=== PATIENT | female | born 1935 | race Caucasian/White ===

== ENCOUNTER 2019-05-14 16:45 | Inpatient (IN) | payer MEDICARE, OTHER ==
[~2019-05-14] VITALS: Ht 157.5 cm; Wt 50.3 kg
[2019-05-14 16:52] VITALS: Ht 157.5 cm; Wt 50.3 kg
--- NOTE | 2019-05-14 17:00 | NUR ---
PT BROUGHT IN BY [facility] FOR SYNCOPAL EPISODE TODAY. PER EMT'S PT WAS AMBULATING AT FACILITY WHEN SHE HAD SYNCOPAL EPISODE. PER STAFF PT. DID NOT HAVE A FALL DURING SYNCOPAL EPISODE AND PLACED BACK IN BED. PT NOTED TO HAVE R CHEEK ECCHYMOSIS, R ADVENT ABRASON AND ECCHYMOSIS TO L JAW. PER EMS CREW THEY WERE TOLD THESE INJURIES WERE DUE TO PREVIOS FALL. PT IS APHASIC AND DOES NOT ANSWER QUSTIONS. PT PLACED ON CM. BREATHING EVEN UNLABORED. NO DISTRESS.
[2019-05-14 17:38] LABS: PLATELET COUNT 390 x10^3mcL (130-400)
--- NOTE | 2019-05-14 17:40 | NUR ---
PT STRAIGHT CATHED TO OBTAIN URINE SAMPLE. PT TOLERATED PROCEDURE WELL.
[2019-05-14 17:41] LABS: BASOPHIL % 0 % (0-2); RED CELL DISTRIBUTION WIDTH 15.1 % (11.5-14.5)
[2019-05-14 17:48] LABS: CARBON DIOXIDE 26.9 mmol/L (21-32); CHLORIDE SERUM 106 mmol/L (98-107); CREATININE SERUM 1.4 mg/dL (0.6-1.0); GLUCOSE SERUM 132 mg/dL (74-106); POTASSIUM SERUM 5.4 mmol/L (3.5-5.1); SODIUM SERUM 140 mmol/L (136-145)
[2019-05-14 17:52] LABS: ALKALINE PHOSPHATASE 115 U/L (46-116); ALT/SGPT 20 U/L (14-59); AST/SGOT 20 U/L (15-37); BILIRUBIN TOTAL 0.2 mg/dL (0.20-1.00); TOTAL PROTEIN, SERUM 7.3 g/dL (6.4-8.2)
--- NOTE | 2019-05-14 18:17 | NUR ---
PT OFF FLOOR TAKEN FOR CT SCAN VIA [facility].
--- NOTE | 2019-05-14 19:08 | NUR ---
PT REPORT RECEIVED FROM KD MANLEY TO ASSUME PT CARE, PT LAYING IN A POSITION OF COMFORT IN VIEW OF NURSE'S STATION. PT REMAINS ON FULL CM.
--- NOTE | 2019-05-14 19:10 | NUR ---
REPORT GIVEN TO SINDHU ELIZALDE TO ASSUME CARE OF PT.
--- NOTE | 2019-05-14 20:16 | NUR ---
PT RESTING IN A POSITION OF COMFORT WITH EYES CLOSED, RESP EVEN AND UNLABORED, NO ACUTE DISTRESS NOTED.
--- NOTE | 2019-05-14 21:04 | NUR ---
PT RESTING IN A POSITION OF COMFORT WITH EYES CLOSED, CHEST RISE AND FALL NOTED.
[2019-05-14] MEDS ORDERED: ARICEPT10 MG PO (21:23)
[2019-05-14] MEDS ORDERED: BENAZEPRIL HYDR40 M1 PO (21:23)
[2019-05-14] MEDS ORDERED: COLACE100 MG PO (21:24)
[2019-05-14] MEDS ORDERED: CALCIUM + D SO1 EACH PO (21:24)
[2019-05-14] MEDS ORDERED: FERROUS SULFAT325 M2 PO (21:25)
[2019-05-14] MEDS ORDERED: GABAPENTIN100 M2 PO (21:25)
[2019-05-14] MEDS ORDERED: SYNTHROID0.15 MG PO (21:25)
--- NOTE | 2019-05-14 21:36 | NUR ---
PT REPORT CALLED TO DAI MANLEY TO ASSUME PT CARE.
--- NOTE | 2019-05-14 21:39 | NUR ---
PT TRANSFERRED TO [address] [facility] BY EMELY MANLEY AND JALEN EMT. PT ON FULL CM FOR TRANSPORT, PT AT BASELINE, NON-VERBAL, RESPONSIVE TO PAIN ONLY, HOWEVER, RESP EVEN AND UNLABORED, NO ACUTE DISTRESS NOTED. PT ACCEPTED BY DAI MANLEY TO ASSUME PT CARE, PT TRANSFERRED FROM [facility] TO BED WITHOUT INCIDENT.
--- NOTE | 2019-05-14 22:00 | NUR ---
RECIEVED PT FROM ED. NO DISTRESS NOTED. NONVERBAL. RESPONDS TO VERBAL STIMULI. LUNGS CLEAR, ON 2L NC. NO SIGN OF RESP DISTRESS. EQUAL CHEST RISE AND FALL. TELE #8, NSR. NO SIGN OF DISTRESS NOTED. PULSES ARE PRESENT. NO EDEMA NOTED. BOWEL SOUNDS PRESENT x4. WATERY BLACK STOOL NOTED. MD MATA MADE AWARE. LUE CONTRACTURE NOTED. SKIN TEAR NOTED ON RLE WITH A DARK PUPLISH DISCOLORATION NOTED NEXT TO THE SKIN TEAR. CLEANED WITH NS, PICTURE TAKEN, NO DRAINAGE NOTED AND COVERED WITH A 4X4 DRESSING. 2 CIRCULAR, CLOSED, DRY SCABS NOTED ON L ELBOW. ERYTHEMIC WITH YELLOWISH SKIN NOTED ON L JAW. ERYTHEMIC SCAB NOTED ON R UPPER BROW. PICTURES TAKEN. NOTED HARD LUMP NOTED ON L BREAST. IV ON RH, INTACT AND PATENT. BED IS AT LOWEST SETTING. CALL LIGHT WITHIN REACH. BED ALARM IS ON. WILL CONTINUE TO MONITOR.
[2019-05-14 23:03] LABS: T3 TOTAL 0.71 ng/mL
[2019-05-14 23:11] LABS: FREE T4 1.54 ng/dL (0.76-1.46); FREE THYROXINE INDEX 3.6 ug/dL (1.4-4.5); T4(THYROXINE) 8.8 ug/dL (4.7-13.3)
--- NOTE | 2019-05-14 23:16 | NUR ---
SPOKE BRITTNEY MATA ABOUT PT HAVING A DNR PAPER IN HER CHART AND SHE IS ON THE SYSTEM A FULL CODE. ALSO REQUESTED AN ULTRASOUND FOR THE LUMP NOTED ON PT LEFT BREAST. MD TO INPUT ORDERS. WILL CONTINUE TO MONTIOR PT.
[2019-05-14 23:27] VITALS: BP 114/55
--- NOTE | 2019-05-15 01:01 | NUR ---
PT IS RESTING IN BED WITH BOTH EYE CLOSED. BREATHING EVEN AND UNLABORED. NO SIGN OF DISTRESS NOTED. IV INTACT AND PATENT. BED IS AT LOWEST SETTING. CALL LIGHT WITHIN REACH. WILL CONTINUE TO MONTIOR.
[2019-05-15 05:29] VITALS: BP 133/49
[2019-05-15 06:32] LABS: PLATELET COUNT 360 x10^3mcL (130-400)
[2019-05-15 06:38] LABS: CALCIUM 8.1 mg/dL (8.5-10.1); CARBON DIOXIDE 27.8 mmol/L (21-32); CHLORIDE SERUM 110 mmol/L (98-107); GLUCOSE SERUM 99 mg/dL (74-106); MAGNESIUM 1.7 mg/dL (1.8-2.4); PHOSPHOROUS 3.3 mg/dL (2.5-4.9); POTASSIUM SERUM 4.8 mmol/L (3.5-5.1); SODIUM SERUM 143 mmol/L (136-145)
--- NOTE | 2019-05-15 06:56 | NUR ---
PT IS RESTING IN BED. ULTRASOUND IS AT BEDSIDE. PT WAS UNABLE TO SWALLOW AM MEDICATION AND UNABLE TO FOLLOW COMMAND. MD MATA WAS PAGED. PT IS KEPT NPO AT THIS TIME UNTIL A SWALLOW EVAL IS COMPLETED. WILL ENDORSE TO AM NURSE.
--- NOTE | 2019-05-15 07:00 | NUR ---
ALOC, NONVERBAL, DOES BABBLE. RESPONDS TO TACTILE STIMULUS, NODS AND SMILES AND WITHDRAWS TO PAIN. LUNG SOUNDS DIMINISHED BILATERALLY, ON 2L NC O2 SAT 100%. TELE #8 NSR. PERIPHERAL PULSES PALPABLE, NO SIGNS OF EDEMA. NORMOACTIVE BOWEL SOUNDS X4. RLE ANTERIOR SCHIN AREA DRESSING CDI. SCABS ON LEFT ELBOW, OPEN TO AIR AND NO SIGNS OF INFECTION. INCONTINENT OF BLADDER. RIGHT HAND IV SITE CDI AND NO SIGNS OF INFECTION, PATENT. LEFT BREAST MASS MISHAPEN AND HARD TO PALPATION. ULTRASOUND DONE ON LEFT BREAST AND TO RIGHT BREAST FOR COMPARISON.
[2019-05-15 07:33] LABS: BASOPHIL % 0 % (0-2)
[2019-05-15 08:35] VITALS: BP 126/68
[2019-05-15 09:10] VITALS: BP 133/49
[2019-05-15 10:20] LABS: microscopic required? YES; urine erythrocyte NEGATIVE (NEGATIVE)
[2019-05-15 10:26] LABS: AMPHETAMINE QUAL UR NONE DETECTED (See below)
--- NOTE | 2019-05-15 11:47 | NUR ---
DR TURNER AWARE THAT PATIENT'S UA HAS NITRITES AND 2+ LEUKOCYTES. I ALSO TOLD HER SHE SWALLOWS HER PILLS CRUSHED IN PUDDING WITHOUT DIFFICULTY, THAT SHE HAS NO TEETH. SHE SAID HE IS ORDERING A SWALLOW EVAL. SHE IS ALSO AWARE THAT HER WBC'S ARE 14.0.
[2019-05-15 12:39] VITALS: BP 104/59
--- NOTE | 2019-05-15 12:53 | NUR ---
PT WAS SEEN FOR DYSPHAGIA.PT WAS ABLE TO SAFELY SWALLOW PUREE DIET WITH NECTAR THICK LIQUID. PT HAD COUGH FOR THIN LIQUID. RECOMMENDATION PUREE DIET WITH NECTAR THICK LIQUID SMALL BITES AND SIPS ONLY 1:1 SUPERVISION.
--- NOTE | 2019-05-15 13:00 | NUR ---
SPOKE TO DR. MURPHY ABOUT PATIENT'S SWALLOW EVAL, AND RECOMMENDATION FOR PUREE NECTAR THICK LIQUID DIET. DR. MURPHY CONFIRMED TO ORDER PUREE NECTAR THICK LIQUID DIET.
--- NOTE | 2019-05-15 15:35 | NUR ---
DISCUSSED WITH DR. MURPHY PATIENT'S FLU VACCINE STATUS. SHE WANTS US TO ORDER A FLU VACCINE. DR. MURPHY ALSO WANTS TO DISCUSS WITH FAMILY PERTAINING TO BEING POSSIBLY PUT ON HOSPICE. PATIENT'S DAUGHTER WILL COME THIS EVENING TO TALK TO THE RESIDENT.
[2019-05-15 17:28] VITALS: BP 104/52
--- NOTE | 2019-05-15 18:41 | NUR ---
ALOC. TELE #8, NSR. FAMILY WAS PRESENT. DOCTOR JEFFREY TALKED WITH FAMILY. IV SITE RIGHT HAND CDI. NO SIGNS OF PAIN. NO SOB. ATE 50% OF PUREE DINNER, FEEDER.
--- NOTE | 2019-05-15 19:22 | NUR ---
NURSING CO-SIGN THE DOCUMENTATION ENTERED BY THE IP HAS BEEN REVIEWED. REVIEWED/CO-SIGNED BY: Alisa Rosales DOCUMENTATION DONE BY: MELISSA CANDELARIA RN.
--- NOTE | 2019-05-15 19:30 | NUR ---
PT IS RESTING IN BED. NON VERBAL. UNABLE TO FOLLOW COMMANDS. ON TELE #8, NSR. NO SIGN OF PAIN OR DISTRESS NOTED. LUNGS CLEAR IN ALL FEILDS. ON RA, DENIES ANY SOB. EQUAL CHEST RISE AND FALL. LUMP ON L BREAST IS FIRM. BOWEL SOUNDS PRESENT X4. FLAT AND SOFT. INCONTINENT WITH URINE AND BM. LUE CONTRACTED. DRESSING ON RLE IS CLEAN AND INTACT. L ELBOW SCABS INTACT. NO PAIN NOTED. IV ON RH INTACT AND PATENT. NO SIGN OF INFILTRATION OR IRRITATION. BED IS AT LOWEST SETTING. SANDY LIGHT WITHIN REACH. BED ALARM IS ON. WILL CONTINUE TO MONITOR.
[2019-05-15 21:30] VITALS: BP 98/42
--- NOTE | 2019-05-16 01:19 | NUR ---
PT IS RESTING IN BED WITH NO SIGN OF DISTRESS NOTED. BREATHING EVEN AND UNALBORED. IV IS INTACT. BED IS AT LOWEST SETTING. CALL LIGHT WITHIN REACH. WILL CONTINUE TO MONTIOR.
[2019-05-16 05:18] VITALS: BP 110/50
--- NOTE | 2019-05-16 07:00 | NUR ---
PT IS RESTING IN BED WITH BOTH EYES CLOSED. BREATHING EVEN AND UNLABORED. NO SIGN OF DISTRESS NOTED. NO ACUTE EVENT OCCURED DURING SHIFT. BED IS AT LOWEST SETTING. CALL LIGHT WITHIN REACH. WILL ENDORSE TO AM NURSE.
--- NOTE | 2019-05-16 07:30 | NUR ---
RECEIVED PATIENT IN BED. NOT VERBALIZING AT THIS TIME. TELE 8 NSR. RESP EVEN AND UNLABORED, ON O2 AT 2L VIA N/C. IVF INFUSING TO RIGHT HAND, SITE PATENT. LEFT BREAST MASS NOTED. LUE CONTRACTURE NOTED. SKIN TEAR WITH ISLAND DRESSING NOTED ON RLE C/D I. 2 SCABS ON LEFT ELBOW AND BRUISE ON LEFT JAW, RT EYEBROW RED SCAB ALSO NOTED. PATIENT IS INCONT. NO S/S OF ANY PAIN AT THIS TIME.
[2019-05-16 07:50] LABS: BASOPHIL % 0.1 % (0-2); PLATELET COUNT 330 x10^3mcL (130-400)
[2019-05-16 07:59] LABS: CALCIUM 8.3 mg/dL (8.5-10.1); CHLORIDE SERUM 109 mmol/L (98-107); CREATININE SERUM 1.1 mg/dL (0.6-1.0); GLUCOSE SERUM 87 mg/dL (74-106); MAGNESIUM 1.5 mg/dL (1.8-2.4); PHOSPHOROUS 2.8 mg/dL (2.5-4.9); POTASSIUM SERUM 4.4 mmol/L (3.5-5.1); SODIUM SERUM 144 mmol/L (136-145)
[2019-05-16 08:04] LABS: RED CELL DISTRIBUTION WIDTH 14.8 % (11.5-14.5)
[2019-05-16 08:26] VITALS: BP 140/60
[2019-05-16 11:42] VITALS: BP 136/61
--- NOTE | 2019-05-16 12:36 | NUR ---
PATIENT REMAINS IN BED. REPOSITIONED Q 2 HRS. REMAINS NON VERBAL AT THIS TIME. IVF INFUSING WELL TELE 8 NSR. WILL CONTINUE TO MONITOR.
--- NOTE | 2019-05-16 13:41 | NUR ---
PHYSICAL THERAPY NOTE PATIENT IS SEEN FOR FOLLOW UP PHYSICAL THERAPY VISIT. NO RESPOSNE ON COMMAND. PATIENT IS TOTAL ASSIST FOR FUNCTIONAL MOBILITY @ THIS TIME. NOT A GOOD CANDIDATE TO CONTINUE PHYSICAL THERAPY. RE-EVAL CONSIDER SHOULD THE PATIENT'S RESPONSE IMPROVES. END TO NSG FOR ADL AND POSITIONING NEEDS
[2019-05-16 16:37] VITALS: BP 120/63
--- NOTE | 2019-05-16 17:41 | NUR ---
PATIENT REMAINS IN BED, REPOSITIONED Q 2 HRS. REMAINS NON VERBAL DOES OPEN EYES OCCAS. NO S/S OF ANY PAIN. IVF INFUSING WELL, SITE PATENT. WILL CONTINUE TO MONITOR.
--- NOTE | 2019-05-16 18:12 | NUR ---
I HAVE REVIEWED THE DATA COLLECTION BY ALVIN (NAME): JOSELUIS ONOFRE ENTERED ON (DATE/TIME): 05/16/19 I CONCUR WITH THE DATA AND ANY EXCEPTIONS OR COMMENTS ARE LISTED BELOW:
--- NOTE | 2019-05-16 19:30 | NUR ---
RECIEVED PT IN NO ACUTE DISTRESS. AWAKE. NON-VERBAL. PERRLA. IDALMIS FURTHER NEURO. TELE #8, SINUS ARRHYTHMIA. LUNGS DIMINISHED ON NC @ 2L. BREATHING E/U. INCONTINENT, CLEAN/DRY AT THIS TIME. RUE POSSIBLY CONTRACTED. DRESSING TO RUE AND RLE, CDI. DRY SCABS X 2 TO L ELBOW, DRY SCAB TO R FOREHEAD. PURPLE DISCOLORATION TO L JAW. NO SIGNS OF PAIN PER FLACC. IV TO R HAND, PATENT. HOB AT 45 DEGREES. BED IN LOWEST POSITION, 2 SIDE RAILS UP, CALL LIGHT IN REACH. INSTRUCTED TO CALL FOR ASSISTANCE.
--- NOTE | 2019-05-17 02:01 | NUR ---
RESTING WITH EYES CLOSED. BREATHING E/U. NO ACUTE DISTRESS NOTED. WILL CONTINUE TO MONITOR.
[2019-05-17 05:00] VITALS: BP 130/68
--- NOTE | 2019-05-17 06:32 | NUR ---
NO ACUTE DISTRESS NOTED. NO ACUTE CHANGES. WILL ENDORSE TO ONCOMING RN.
[2019-05-17 09:11] VITALS: BP 110/53
[2019-05-17 13:00] VITALS: BP 128/62
[2019-05-17 16:53] VITALS: BP 133/66
[2019-05-17 20:15] VITALS: BP 87/54
[2019-05-17 23:16] VITALS: BP 118/53
--- NOTE | 2019-05-17 23:19 | NUR ---
INFORMED DR. MATA BP EARLIER WAS 87/54, CURRENT BP 118/83, AR 77.
--- NOTE | 2019-05-18 01:33 | NUR ---
EYES CLOSED, BREATHING EVEN AND UNLABORED ON 2LPM OF O2 VIA NC. HOB KEPT ELEVATED 30 DEG. CALL LIGHT WITHIN EASY REACH. BED ALARM ON.
--- NOTE | 2019-05-18 01:40 | NUR ---
LATE ENTRY: 2000H - EYES CLOSED, OPENED EYES TO TACTILE AND VERBAL STIMULI. NON VERBAL. TRACKS. BREATHING EVEN AND UNLABORED ON 2LPM OF O2 VIA NC. LUNG SOUNDS DIMINISHED. HOB ELEVATED 30 DEG. CALL LIGHT WITHIN EASY REACH. IVF INFUSING WELL TO IV TO RIGHT HAND, IV SITE FREE FROM ERYTHEMA OR SWELLING. BED ALARM ON.
--- NOTE | 2019-05-18 02:21 | NUR ---
PAD WET. HYGIENE NEEDS ATTENDED TO. ASSISTED BY LATASHA LAZO. PT AWAKE, TRIES TO HIT WHILE CARE BEING DONE. GOWN CHANGED. HYDRAGUARD APPLIED TO BUTTOCKS. ATTEMPTING TO SAY SOMETHING, INCOMPREHENSIBLE. BREATHING EVEN AND UNLABORED ON 2LPM OF O2 VIA NC. CLOSED EYES WHEN CARE COMPLETED. HOB KEPT ELEVATED 30 DEG. BED ALARM ON.
[2019-05-18 05:15] VITALS: BP 128/53
[2019-05-18 06:26] LABS: CALCIUM 8.4 mg/dL (8.5-10.1); CARBON DIOXIDE 28.3 mmol/L (21-32); CHLORIDE SERUM 110 mmol/L (98-107); GLUCOSE SERUM 86 mg/dL (74-106); POTASSIUM SERUM 4.2 mmol/L (3.5-5.1); SODIUM SERUM 144 mmol/L (136-145)
--- NOTE | 2019-05-18 06:33 | NUR ---
EYES CLOSED, OPENS EYES TO STRONG VERBAL STIMULI. CALM, DID NOT ATTEMPT TO HIT STAFF WHEN CARE BEING DONE. TURNED AND REPOSITIONED. CALL LIGHT WITHIN EASY REACH. BED ALARM ON. IVF INFUSING WELL, IV SITE TO RIGHT HAND FREE FROM ERYTHEMA OR SWELLING. SLIGHT BLANCHABLE REDNESS TO BUTTOCKS, NO OPEN SKIN BREAKDOWN NOTED TO BUTTOCKS OR SACRUM.
[2019-05-18 06:35] LABS: BASOPHIL % 0.2 % (0-2); PLATELET COUNT 308 x10^3mcL (130-400)
[2019-05-18 06:54] LABS: RED CELL DISTRIBUTION WIDTH 14.7 % (11.5-14.5)
--- NOTE | 2019-05-18 07:02 | NUR ---
RECEIVED PT FROM MATE FOURTH NURSE. PT RESTING IN BED, NON-VERBAL, RESP E/U ON 2L NC. NO ACUTE DISTRESS NOTED AT THIS TIME. IV TO RH W/ NO SIGNS OF INFILTRATION, IVF INFUSING WELL . BED IN LOWEST POSITION AND CALL LIGHT WITHIN REACH. WILL CONTINUE TO MONITOR.
--- NOTE | 2019-05-18 07:16 | NUR ---
eyes closed, breathing even and unlabored, in no acute distress. endorseed to nurse yolande
[2019-05-18 07:40] VITALS: BP 138/66
[2019-05-18 11:56] VITALS: BP 126/70
--- NOTE | 2019-05-18 13:06 | NUR ---
PT IN BED SLEEPING, AROUSBALE, RESP E/U ON 2L NC. NO SIGNS OF ACUTE DISTRESS NOTED. BED IN LOWEST POSITION AND CALL LIGHT WITHIN REACH. WILL CONTINUE TO MONITOR.
[2019-05-18 15:46] VITALS: BP 126/70
[2019-05-18 16:40] VITALS: BP 147/87
--- NOTE | 2019-05-18 19:10 | NUR ---
RECEIVED REPORT FROM MELISSA MANLEY. ASSUMING ALL CARE
--- NOTE | 2019-05-18 19:35 | NUR ---
RECEIVED PT LAYING IN BED. PT IS AWAKE/ALERRT, RESPONDS TO VERBAL STIMULI. PT NOTED WITH GARBLED SPEECH. PT DOES NOT FOLLOW SIMPLE COMMANDS. HX: ALZHEIMERS/DEMENTIA. EENT FREE OF DISCHARGE. ORAL MUCOSA PINK AND MOIST. NO JVD NOTED. TRACHEA MIDLINE. BREATHING IS E/U ON 2 LPM VIA NC. LUNGS SOUND CLEAR TO BUL AND DIMIN TO BLL. SYMMETRICAL CHEST EXPANSION NOTED. PT ON TELE #8 READING SA. S1/S2 HEART SOUNDS AUSCULTATED. CHEST WALL EQUAL AND SYMMETRICAL. NO S/S OF CP NOTED. HR 88. PALPABLE PULSES X4 EXTREMITIES. SKIN IS WARM AND DRY. NO EDEMA NOTED. RH IV IN PLACE INFUSING NS @ 70 ML/HR. PT PALE IN COLOR. GENERALIZED WEAKNESS. PT ON BEDREST. CONTRACTURES NOTED TO BUE. PT ON PUREE NECTAR THICK DIET. NO S/S OF N/V NOTED. ABD IS SOFT, FLAT, NONTENDER TO PALPATION. BOWEL SOUNDS ACTIVE X4 QUADRANTS. NO BM NOTED. PT IS INCONTINENT. NO LABIAL EDEMA/VAGINAL DISCHARGE NOTED. SCAB TO R FOREHEAD AND L ELBOW, SKIN TEARS TO RUE AND RLE. ECCHYMOSIS NOTED TO L JAW. PT ON TURN SCHED Q2H AND PRN FOR COMFORT. PT IS CALM AND COOPERATIVE. BED IN LOW POSITION. CALL LIGHT IN REACH. WILL CONT TO MONITOR
[2019-05-18 20:48] VITALS: BP 136/76
--- NOTE | 2019-05-18 23:30 | NUR ---
PT HAD A SMALL FORMED BM, PERICARE PROVIDED
--- NOTE | 2019-05-19 00:52 | NUR ---
PT AGITATED AT THIS TIME, SCREAMING, ANXIOUS. PT MEDICATED WITH ATIVAN IVP PER EMAR. WILL CONT TO MONITOR
--- NOTE | 2019-05-19 03:15 | NUR ---
PT IS SLEEPING, EASILY AROUSABLE. NS INFUSING @ 70 ML/HR WITH NO S/S OF INFILTRATION NOTED. RISE AND FALL OF CHEST NOTED. NO S/S OF DISTRESS NOTED. WILL CONT TO MONITOR
--- NOTE | 2019-05-19 04:30 | NUR ---
PT HAD A LARGE FORMED BM, PERICARE PROVIDED
[2019-05-19 04:45] VITALS: BP 123/72
--- NOTE | 2019-05-19 06:15 | NUR ---
PT IS AWAKE/ALERT. RISE AND FALL OF CHEST SYMMETRIC. NS INFUSING @ 70 ML/HR WITH NO S/S OF INFILTRATION NOTED. NO S/S OF ACUTE DISTRESS NOTED. BED IN LOW POSITION. CALL LIGHT IN REACH. WILL CONT TO MONITOR
[2019-05-19 06:59] LABS: CALCIUM 8.3 mg/dL (8.5-10.1); CARBON DIOXIDE 26.5 mmol/L (21-32); CHLORIDE SERUM 109 mmol/L (98-107); CREATININE SERUM 1.1 mg/dL (0.6-1.0); GLUCOSE SERUM 92 mg/dL (74-106); SODIUM SERUM 143 mmol/L (136-145)
--- NOTE | 2019-05-19 07:10 | NUR ---
REPORT GIVEN TO ION MANLEY. ALL QUESTIONS/CONCERNS ADDRESSED. ENDORSING ALL CARE
[2019-05-19 07:11] LABS: BASOPHIL % 0.2 % (0-2); PLATELET COUNT 322 x10^3mcL (130-400); RED CELL DISTRIBUTION WIDTH 14.3 % (11.5-14.5)
--- NOTE | 2019-05-19 07:40 | NUR ---
PATIENT AWAKE WITH SLIGHTLY LETHARGIC AND DISORIENTED. PATIENT WAS REORIENTED TO PERSON, PLACE AND TIMES. NO INDICATION OF PAIN, SHORTNESS OF BREATH OR NAUSEA/VOMITING AT THIS TIME. IVF NS VIA IV SITE AT RIGHT HAND. TELE # 8 READS SINUS ARRHYTHMIA WITH EPISODES OF SINUS BRADYCARIDA HR BETWEEN 58 TO 62. CALL LIGHT WITHIN REACH. SIDE RAILS UP X3. BED IS AT LOWEST POSITION AND ALARM IS ON.
[2019-05-19 09:13] VITALS: BP 143/77
--- NOTE | 2019-05-19 11:02 | NUR ---
SPEECH THERAPIST IS AT BEDSIDE FOR SWALLOW EVAL.
[2019-05-19 12:17] VITALS: BP 152/76
[2019-05-19] MEDS ORDERED: BACTRIM DS1 TAB PO (15:02)
[2019-05-19 16:45] VITALS: BP 140/62
--- NOTE | 2019-05-19 17:15 | NUR ---
PT WAS SEEN FOR DYSPHAGIA. PT WAS ABLE TO SAFELY SWALLOW PUREE DIET WITH NECTAR THICK LIQUID WITHOUT S/S OF ASPIRATION.PT HAD COUGH DURING INTAKE OF THIN LIQUID. RECOMMENDATION PUREE DIET WITH NECTAR THICK LIQUID SMALL BITES AND SIPS ONLY. 1:1 SUPERVISION.
--- NOTE | 2019-05-19 18:43 | NUR ---
THE PATIENT WAS GIVEN A BED BATH; GOWN AND LINEN CHANGED.
--- NOTE | 2019-05-19 19:40 | NUR ---
RECEIVED REPORT FROM ALVIN MANLEY, PT IS ALERT, EYES CLOSED AT THIS TIME, BUT EASILY AROUSABLE. SPEECH IS GARBLED AND UNABLE TO MAKE NEEDS KNOWN. TELE 8 SHOWS SA. DOES NOT APPEAR TO HAVE ANY CHEST PAIN. BREATHING EASILY ON ROOM AIR. LUNG SOUNDS DIMINISHED. ABD IS SOFT NON DISTENDED. LAST BM TODAY. PT IS INCONTINENT OF BOWELS. GENERALIZED WEAKNESS NOTED. TOTAL CARE PT. TURN Q2H. SKIN TEAR TO RUE AND RLE WITH DRESSING CDI. SCAB TO RIGHT FOREHEAD, DRY, PAINTER AND BODY WORK. BRUISE NOTED TO LEFT SIDE OF JAW. SHIFT ASSESSMENT COMPLETED. IV TO RIGHT HAND, INFUSING NS AT 70ML/HR. CALL LIGHT WITHIN REACH. BED IS IN LOWEST POSITION. WILL CONTINUE TO MONITOR CLOSELY.
--- NOTE | 2019-05-19 19:45 | NUR ---
SPOKE WITH DR. MERIDA AND STATES HE HAS CLEARED PT TO BE D/C'D BACK TO FACILITY. PAGED DR. CHAN TO INFORM, NO CALL BACK AT THIS TIME.
--- NOTE | 2019-05-19 20:05 | NUR ---
SPOKE WITH KELLIE FROM [facility] TO INFORM THEM PT WILL NOT BE LEAVING TONIGHT TO THEIR FACILTY. ALL DUE MEDS GIVEN ORDERED TO PT. PT TOLERATED MEDS WELL WHEN CRUSHED AND GIVEN WITH APPLESAUCE. BREATHING EASILY ON ROOM AIR. WILL CONTINUE TO MONITOR CLOSELY.
[2019-05-19 21:20] VITALS: BP 135/82
--- NOTE | 2019-05-19 22:05 | NUR ---
PT APPEARS TO BE SLEEPING IN NO DISTRESS. REPOSITIONED AT THIS TIME. IVF ONGOING. CALL LIGHT WITHIN REACH. WILL CONTINUE TO MONITOR CLOSELY.
--- NOTE | 2019-05-20 02:55 | NUR ---
PT APPEARS TO BE SLEEPING IN NO DISTRESS. IVF ONGOING. CALL LIGHT WITHIN REACH. WILL CONTINUE TO MONITOR CLOSELY.
[2019-05-20 05:21] VITALS: BP 139/58
--- NOTE | 2019-05-20 06:27 | NUR ---
PT SLEPT ON AND OFF THROUGH OUT SHIFT. REPOSITIONED FOR COMFORT THROUGH OUT THE NIGHT. ALL DUE MEDS GIVEN ORDERED. CALL LIGHT WITHIN REACH. BED IS IN LOWEST POSITION. WILL ENDORSE TO INCOMING SHIFT.
[2019-05-20 06:34] LABS: BASOPHIL % 0.1 % (0-2); CALCIUM 8.9 mg/dL (8.5-10.1); CARBON DIOXIDE 26.5 mmol/L (21-32); CHLORIDE SERUM 110 mmol/L (98-107); CREATININE SERUM 0.9 mg/dL (0.6-1.0); GLUCOSE SERUM 83 mg/dL (74-106); PLATELET COUNT 364 x10^3mcL (130-400); POTASSIUM SERUM 4.1 mmol/L (3.5-5.1); RED CELL DISTRIBUTION WIDTH 14.3 % (11.5-14.5); SODIUM SERUM 144 mmol/L (136-145)
--- NOTE | 2019-05-20 07:10 | NUR ---
RECEIVED REPORT FROM WALTER MANLEY, PT SLEEPING IN BED IN NO ACUTE DISTRESS
--- NOTE | 2019-05-20 07:32 | NUR ---
PT IN BED, IN NO ACUTE DISTRESS, NON-VERBAL, GARBLED SPEECH, AXOX1, UNABLE TO MAKE NEEDS KNOWN, FEEDIGN ASSISTANCE, PUREED DIET, CALM AND COPPERATIVE AT THIS TIME, PERRLA, NO REDNESS/DRAINAGE, NO FACIAL DROOP/SLURRED SPEECH, RESP EVEN, NO SOB/COUGH, DIM BLL, TELE #8, SINUS MONTSE, CHEST RISE SYMMETRICALLY, ABD FLAT AND NON-TENDER TO TOUCH, BS ACTIVE X 4, PALP PULSES, CAP REFILL < 3S, INCONTINENT, BEDREST, SKIN C/D/W, SEE SKIN ASSESSMENT, IV PATENT AND INFUSING WELL, DRESING CDI, TURN Q2H, ALL NEEDS ADDRESSED AT THIS TIME, SAFETY PROTOCOL MAINTAIN, CONTINUE TO MONITOR
[2019-05-20 09:27] VITALS: BP 98/59
--- NOTE | 2019-05-20 09:48 | NUR ---
AM MEDS GIVEN PER MD ORDER VIA EMAR, TOLERATED WELL, NO ASE NOTED AT THIS TIME, EDUCATION R/T MED, ASE AND MONITOR GIVEN TO PT, UNABLE TO VERIFY UNDERSTANDING D/T PT AGED RELATED MENTAL STATUS, CONTINUE TO MONITOR
[2019-05-20 13:13] VITALS: BP 105/75
--- NOTE | 2019-05-20 14:09 | NUR ---
PT IN BED, RESTING, IN NO ACUTE DISTRESS, TURN Q2H, ASSISTED W/ FEEDING, TOLERATED MEAL WELL, SKIN C/D/W, CONTINUE TO MONITOR
[2019-05-20 14:35] VITALS: BP 112/76
--- NOTE | 2019-05-20 15:45 | NUR ---
REPORTED GIVEN TO KRYSTEN MANLEY AT [facility]
--- NOTE | 2019-05-20 15:54 | NUR ---
IV REMOVED, IV CATH TIP PATENT, NO ACTIVE BLEEDING NOTED, TELE REMOVED AND RETURNED TO [facility], DAUGHTER HENNA CLAROS MADE AWARE OF PT TRANSFERRRING TO [facility], , CO-CONFIRMED WITH CHARGE NURSE FIDEL, PT WILL BE PU BY [facility] AT 1630 VIA [facility]
[2019-05-20 17:05] VITALS: BP 94/55
--- NOTE | 2019-05-20 17:51 | NUR ---
PT P/U BY 2 EMT FROM [facility], REPORTS GIVEN, DC PACKAGE GIVEN TO EMT, PT LEFT VIA GURNEY, IN NO ACUTE DISTRESS
== END 2019-05-20 17:57 | DRG 73 ==
LOC: ED 16:45 → DU 21:17
PROVIDERS: Emergency Medicine; ADMIT Internal Medicine
DX: G90.8 Other disorders of autonomic nervous system (principal); N17.0 Acute kidney failure with tubular necrosis; J96.21 Acute and chronic respiratory failure with hypoxia; N39.0 Urinary tract infection, site not specified; E44.1 Mild protein-calorie malnutrition; E87.5 Hyperkalemia; B96.29 Other Escherichia coli [E. coli] as the cause of diseases classified elsewhere; E86.0 Dehydration; G30.9 Alzheimer's disease, unspecified; F02.80 Dementia in other diseases classified elsewhere, unspecified severity, without behavioral disturbance, psychotic disturbance, mood disturbance, and anxiety; S50.312A Abrasion of left elbow, initial encounter; S00.212A Abrasion of left eyelid and periocular area, initial encounter; G62.9 Polyneuropathy, unspecified; E03.9 Hypothyroidism, unspecified; M19.90 Unspecified osteoarthritis, unspecified site; D64.9 Anemia, unspecified; I10 Essential (primary) hypertension; W18.39XA Other fall on same level, initial encounter; Z91.81 History of falling; Y93.89 Activity, other specified; Y92.128 Other place in nursing home as the place of occurrence of the external cause; Z68.20 Body mass index [BMI] 20.0-20.9, adult
CPT/HCPCS: 76641; 83880; 84439; 90658; 92526-GN; 92610-GN; G0378; J0696; J2060; J2543; J3475; J3490; J7030; J7060; J7620; Q0092